=== PATIENT | female | born 1960 | race Caucasian/White ===

== ENCOUNTER 2023-09-18 12:11 | Outpatient (AMB) | payer BC, SELFPAY ==
[2023-09-18 12:34] VITALS: BP 110/72; PULSE 70; O2SAT 96; BMI 17.4
--- NOTE | 2023-09-18 12:34 | MHC.PC.OV ---
Vital Signs 09/18/23 12:34 Height 5 ft 5 in Weight 104 lb 8 oz BMI 17.4 BP 110/72 Blood Pressure Location Lt brachial Position Sitting Pulse 70 Pulse Source Pulse Oximeter Pulse Oximetry (%) 96 Oxygen Delivery Method Room Air Intake Visit Reasons: 6mth f/u Workforce Services Representative Required: No Accompanied by: Self / Same As Patient Allergies clonidine Allergy (Unknown, Verified 03/21/24 12:59) Unknown metronidazole [From Flagyl] Allergy (Unknown, Verified 03/21/24 12:59) Unknown oxazepam [From Serax] Allergy (Unknown, Verified 03/21/24 12:59) Unknown vancomycin Allergy (Unknown, Verified 03/21/24 12:59) Unknown Medication List - Last Reconciled 09/18/23 by Primo Sanchez MD atovaquone 750 mg PO BID azithromycin 250 mg PO DAILY clobetasol 0.05% 1 appl topical BID 2 weeks clobetasol 0.05% 1 appl topical BID PRN cyanocobalamin (vitamin B-12) 1,000 mcg IM QWEEK diazepam (Valium) 2 mg PO DAILY PRN 30 days duloxetine 30 mg PO BID esomeprazole magnesium 40 mg PO DAILY estradiol-norethindrone acet 1-0.5 mg (Mimvey) 1 tab PO DAILY fentanyl 50 mcg/hr 1 patch transdermal Q48H 30 days fentanyl 50 mcg/hr 1 patch topical Q48H 20 days NS fentanyl 50 mcg/hr 1 patch transdermal Q48H 10 days NS ferrous sulfate (Feosol) 325 mg PO DAILY hydrocodone-acetaminophen 10-325 mg 1 tab PO Q6H PRN 28 days ibuprofen 800 mg PO TID PRN levothyroxine 88 mcg PO DAILY lidocaine 5% 1 patch topical DAILY 30 days liothyronine 5 mcg PO DAILY methylphenidate HCl 5 mg PO BID 28 days oxycodone-acetaminophen 10-325 mg 1 tab PO Q6H 28 days prochlorperazine maleate 10 mg PO TID PRN valacyclovir 500 mg PO BID Tobacco use date assessed: 09/18/23 Fall risk assessment: No Falls in past year Last assessed Fall Risk: 09/18/23 Dental Screening Dental Screen Date: 09/18/23 Did you have a dental visit in the last 12 months?: No Did you have a dental problem in the last 6 months where you did not have access to dental care?: No Was dental information given to patient?: No HPI 6mth f/u HPI Details Patient comes in today for her follow up visit States that she was diagnosed recently by her alternative medicine doctor in [place] with Lyme disease, then with Babesia - states that she herself is not entirely clear as to what she has but she is currently taking some Abx to help clear up these infection(s) Relates again increased pain over her lower back lately She denies any fever, increased headaches or dizziness lately Denies any chest pains, no SOB No nausea/vomiting, no abdominal pain No change in bowel habits noted Needs her 2 thyroid meds Rx and Hydrocodone Rx refilled today She had her follow up labs done back in May 2023 - to discuss her results [facility] Medical History Dermatitis Osteopenia Pernicious anemia Impaired fasting glucose Acquired hypothyroidism Pure hypercholesterolemia Renal insufficiency GERD without esophagitis Failed back syndrome of lumbar spine Chronic fatigue syndrome Lumbar degenerative disc disease Surgical History Hx of colonoscopy (~08/21/17) History of endoscopy History of surgery Family History Father Chronic GERD Mother Hypertension Hypothyroid Social History Housing: House Alcohol intake: current Alcohol intake frequency: holidays/special occasions only Patient Tobacco Use Status: Former Tobacco user Tobacco use type: Cigarette e-Cigarette/Vaping Use: Never Used Second Hand Smoke Exposure: No service: No Current occupational status: disabled Cognitive needs: No Hearing needs: No Vision needs: No Questionnaire PHQ-9 Over the last 2 weeks, how often have you been bothered by any of the following problems? 1. Little interest or pleasure in doing things: not at all 2. Feeling down, depressed, or hopeless: not at all 3. Trouble falling or staying asleep, or sleeping too much: not at all 4. Feeling tired or having little energy: not at all 5. Poor appetite or overeating: not at all 6. Feeling bad about yourself - or that you are a failure or have let yourself or your family down: not at all 7. Trouble concentrating on things, such as reading the newspaper or watching television: not at all 8. Moving or speaking so slowly that other people could have noticed. Or the opposite - being so fidgety or restless that you have been moving around a lot more than usual: not at all 9. Thoughts that you would be better off or of hurting yourself in some way: not at all Total score: 0 Depression Screening Interpretation: Negative (is on Rx) Depression Screening Done: Yes [id number] - PHQ-9 Billing: Yes Source: Developed by Drs. Juan Antonio Woods, Radha Tenorio, Arpit Mccauley and colleagues, with an educational michelle from [employer]. Thrive Questionnaire Date Thrive assessed: 09/18/23 I am a: Patient What is your living situation today?: I have a steady place to live Within the past 12 months, did the food you bought not last and you didn't have the money to get more?: Never true Within the past 12 months, did you worry whether your food would run out before you got money to buy more?: Never true Do you have trouble paying for medicines?: No Do you have trouble getting transportation to medical appointments?: No Do you have trouble paying your heating and electricity bill?: No Do you have trouble taking care of your child, family member or friend?: No Do you have trouble with day-to-day activities such as bathing, preparing meals, shopping, managing finances, etc.?: No Are you currently unemployed and looking for a job?: No Are you interested in more education?: No Please select the resources that you would like help with: None Currently or been in a relationship where the following occur: no concerns reported AUDIT C Alcohol Use Questionnaire (AUDIT-C) 1. How often do you have a drink containing alcohol?: Monthly or less 2. How many drinks containing alcohol do you have on a typical day when you are drinking?: 1 or 2 3. How often do you have six or more drinks on one occasion?: Never Total Score: 1 Score Reviewed/Action Taken: Yes KRISTEL-7 AMB Questionnaire KRISTEL-7 Date KRISTEL - 7 assessed: 09/18/23 Feeling nervous, anxious, or on edge: 0 = Not at all Not being able to stop or control worryin = Not at all Worrying too much about different things: 0 = Not at all Trouble relaxin = Not at all Being so restless that it is hard to sit still: 0 = Not at all Becoming easily annoyed or irritable: 0 = Not at all Feeling afraid as if something awful might happen: 0 = Not at all Total KRISTEL-7 score (0-4 normal; 5-9 mild; 10-14 moderate; 15-21 severe): 0 Source: Developed by Drs. Juan Antonio Woods, Radha Tenorio, Arpit Mccauley and colleagues, with an educational michelle from [employer]. Review of Systems Const Denies chills, Reports fatigue (chronic), Denies fever(s) and Denies headache(s) ENT Denies dysphagia, Denies dizziness, Denies otalgia, Denies headache(s), Denies neck pain, Denies odynophagia and Denies sore throat Card Denies chest pain, Denies palpitations and Denies dyspnea Resp Denies chest congestion, Reports cough (on and off, coughs up whitish phlegm at times) and Denies dyspnea GI Denies abdominal pain, Denies constipation, Denies dysphagia, Denies heartburn, Denies diarrhea, Denies nausea, Denies odynophagia and Denies vomiting Denies difficulty voiding, Denies nocturia, Denies dysuria and Denies urinary urgency Musc Reports back pain (over the lower back - chronic but feels that this has been worse lately), Reports myalgias (diffuse - chronic but increased lately) and Denies neck pain Neuro Denies dizziness and Denies headache(s) Endo Reports fatigue (chronic) and Denies palpitations Physical exam (Primary Care) Vital Signs: Last Vital Signs Pulse 70 09/18/23 12:34 BP 110/72 09/18/23 12:34 Pulse Ox 96 09/18/23 12:34 Oxygen Delivery Method Room Air 09/18/23 12:34 BMI result Body Mass Index 17.4 Tobacco/Smoking Status: Tobacco use Status Tobacco use date assessed 09/18/23 09/18/23 12:43 Patient Tobacco Use Status Former Tobacco user 09/18/23 12:43 Tobacco use type Cigarette 09/18/23 12:43 e-Cigarette/Vaping Use Never Used 09/18/23 12:43 PHQ-9: PHQ-9 Score PHQ-9: Total score 0 09/18/23 12:57 Depression Screening Interpretation: Negative (is on Rx) Thrive Assessment: Date of Thrive Assessment Date Thrive assessed 09/18/23 12 12:43 Currently or been in a relationship where the following occur: no concerns reported Assessment and Plan Assessment & Plan (1) Failed back syndrome of lumbar spine: Code(s): M96.1 - Postlaminectomy syndrome, not elsewhere classified Plan: S/P lumbar spine surgery x 2 in the past without any significant improvement/relief Reinforced activity and weight-lifting restrictions Continue Vicodin 10-325 mg q 6 hours PRN ? Fentanyl 50 mcg patch every 48 hrs ? Duloxetine 30 mg BID and ? Ibuprofen 800 mg TID PRN (2) Chronic fatigue syndrome: Code(s): R53.82 - Chronic fatigue, unspecified Plan: Continue Methylphenidate 5 mg BID Patient [facility] [place] [facility] She was previously started on some Thymosin peptide injections (Thymosin Alpha 1/2 cc BIW), which she states were causing her more pain and they were eventually discontinued She was then advised of newer recommendations regarding Tx with Methylene blue but patient was skeptical about this and apparently did not pursue this States that her symptoms have gotten worse over the past few weeks, which she now realizes may be due to Lyme disease, which was diagnosed recently and is currently being treated (3) Lyme disease: Code(s): A69.20 - Lyme disease, unspecified Plan: Recently diagnosed - states that she is currently being treated for this but is not sure which Abx she is on at this time Recalls that she could not tolerate oral Doxycycline recently (4) Acquired hypothyroidism: Code(s): E03.9 - Hypothyroidism, unspecified Plan: Her TFTs were normal on her labs done back in May 2023 Continue Levothyroxine 88 mcg daily (5) Pure hypercholesterolemia: Code(s): E78.00 - Pure hypercholesterolemia, unspecified Plan: Results of her labs done back in May 2023 reviewed and discussed with patient - she is advised that her total cholesterol (210 mg/dl) and LDL cholesterol (135 mg/dl) were both still slightly elevated above recommended on her labs back in May 2023 Reinforced low cholesterol diet Patient still does not wish to start taking cholesterol Rx at this time (6) Renal insufficiency: Code(s): N28.9 - Disorder of kidney and ureter, unspecified Plan: Her previous labs showed findings consistent with stage 2 CKD - will need to continue monitoring her GFR and serum creatinine regularly Her serum creatinine and GFR appear stable on her recent labs Will consider referral to Nephrology for further evaluation and management if her renal function declines any further (7) Impaired fasting glucose: Code(s): R73.01 - Impaired fasting glucose Plan: Reinforced low-calorie diet /exercise as tolerated Her HgbA1c was normal at 4.5% on her labs back in May 2023; FBS was normal at 95 mg/dl (8) GERD without esophagitis: Code(s): K21.9 - Gastro-esophageal reflux disease without esophagitis Plan: Dietary restrictions reinforced Continue Esomeprazole 40 mg QD (9) Pernicious anemia: Code(s): D51.0 - Vitamin B12 deficiency anemia due to intrinsic factor deficiency Plan: Continue Vitamin B12 injection once a week Her CBC and Vitamin B12 were both normal on her labs in May 2023 (10) Dermatitis: Code(s): L30.9 - Dermatitis, unspecified Plan: Continue Clobetasol 0.05% BID PRN (11) Osteopenia: Code(s): M85.80 - Other specified disorders of bone density and structure, unspecified site Qualifiers: Osteopenia location: unspecified Qualified Code(s): M85.80 - Other specified disorders of bone density and structure, unspecified site Plan: Repeat BMD originally scheduled back in November 2019 was canceled due to the COVID-19 pandemic and patient has not been able to get her BMD rescheduled since Plan To return as scheduled in March 2024 for her annual physical examination Medications: Changed From levothyroxine 88 mcg PO DAILY 90 tabs 0RF To levothyroxine 88 mcg PO DAILY 90 tabs 1RF 90 days From liothyronine 5 mcg PO DAILY 90 tabs 0RF To liothyronine 5 mcg PO DAILY 90 tabs 1RF 90 days Coding Level of Care Code Est Pt Level 4 (40768) Diagnoses Failed back syndrome of lumbar spine M96.1 Chronic fatigue syndrome R53.82 Lyme disease A69.20 Acquired hypothyroidism E03.9 Pure hypercholesterolemia E78.00 Renal insufficiency N28.9 Impaired fasting glucose R73.01 GERD without esophagitis K21.9 Pernicious anemia D51.0 Dermatitis L30.9 Osteopenia, unspecified location M85.80 Osteopenia location: unspecified
== END 2023-09-18 13:09 | disposition home or self-care (01) ==
PROVIDERS: PCP Internal Medicine; Visit Provider Internal Medicine
DX: M96.1 Postlaminectomy syndrome, not elsewhere classified (principal); R53.82 Chronic fatigue, unspecified; A69.20 Lyme disease, unspecified; E03.9 Hypothyroidism, unspecified; E78.00 Pure hypercholesterolemia, unspecified; N28.9 Disorder of kidney and ureter, unspecified; R73.01 Impaired fasting glucose; K21.9 Gastro-esophageal reflux disease without esophagitis; D51.0 Vitamin B12 deficiency anemia due to intrinsic factor deficiency; L30.9 Dermatitis, unspecified; M85.80 Other specified disorders of bone density and structure, unspecified site
CPT/HCPCS: 99499

== ENCOUNTER 2023-11-06 12:48 | Outpatient (AMB) | payer BC, SELFPAY ==
[2023-11-06 12:56] VITALS: BP 128/70; PULSE 95; O2SAT 98; BMI 17.3
--- NOTE | 2023-11-06 12:56 | A.OFFPC_ITS ---
Vital Signs 11/06/23 12:56 Height 5 ft 5 in Weight 104 lb BMI 17.3 BP 128/70 Blood Pressure Location Lt brachial Position Sitting Pulse 95 Pulse Source Pulse Oximeter Pulse Oximetry (%) 98 Oxygen Delivery Method Room Air Intake Visit Reasons: requesting ortho referral Raking Machine Operator Required: No Heel Room Supervisor: Present Accompanied by: Self / Same As Patient Allergies clonidine Allergy (Unknown, Verified 11/06/23 13:54) Unknown metronidazole [From Flagyl] Allergy (Unknown, Verified 11/06/23 13:54) Unknown oxazepam [From Serax] Allergy (Unknown, Verified 11/06/23 13:54) Unknown vancomycin Allergy (Unknown, Verified 11/06/23 13:54) Unknown Medication List - Last Reconciled 11/06/23 by Clint Hwang MD atovaquone 750 mg PO BID azithromycin 250 mg PO DAILY clobetasol 0.05% 1 appl topical BID 2 weeks clobetasol 0.05% 1 appl topical BID PRN cyanocobalamin (vitamin B-12) 1,000 mcg IM QWEEK diazepam (Valium) 2 mg PO DAILY PRN 30 days duloxetine 30 mg PO BID esomeprazole magnesium 40 mg PO DAILY estradiol-norethindrone acet 1-0.5 mg (Mimvey) 1 tab PO DAILY fentanyl 50 mcg/hr 1 patch transdermal Q48H 30 days fentanyl 50 mcg/hr 1 patch topical Q48H 20 days NS fentanyl 50 mcg/hr 1 patch transdermal Q48H 10 days NS ferrous sulfate (Feosol) 325 mg PO DAILY hydrocodone-acetaminophen 10-325 mg 1 tab PO Q6H PRN 28 days ibuprofen 800 mg PO TID PRN levothyroxine 88 mcg PO DAILY 90 days lidocaine 5% 1 patch topical DAILY 30 days liothyronine 5 mcg PO DAILY 90 days methylphenidate HCl 5 mg PO BID 28 days oxycodone-acetaminophen 10-325 mg 1 tab PO Q6H 28 days prochlorperazine maleate 10 mg PO TID PRN valacyclovir 500 mg PO BID Tobacco use date assessed: 11/06/23 Fall risk assessment: No Falls in past year Last assessed Fall Risk: 11/06/23 Dental Screening Dental Screen Date: 11/06/23 Did you have a dental visit in the last 12 months?: Yes Did you have a dental problem in the last 6 months where you did not have access to dental care?: No Was dental information given to patient?: Patient has dentist HPI requesting ortho referral HPI Details 63-year-old female presents to the [facility] for a sick visit. I am covering her primary care provider. Patient reports for the past 4 weeks she is having lower back pain. She has had 2 back surgeries in the past. The last surgery was in 2008. Patient has been taking a combination of fentanyl, oxycodone for pain control. Current spasms in her back and her upper thigh have prep present for more than 4 weeks. She would like to see an orthopedic surgeon. Has not had any physical therapy or conventional muscle relaxants. Patient takes Valium for muscle relaxant. [facility] Medical History Acquired hypothyroidism Chronic fatigue syndrome Dermatitis Failed back syndrome of lumbar spine GERD without esophagitis Impaired fasting glucose Lumbar degenerative disc disease Osteopenia Pernicious anemia Pure hypercholesterolemia Renal insufficiency Surgical History Hx of colonoscopy (~08/21/17) History of endoscopy History of surgery Family History Father Chronic GERD Mother Hypertension Hypothyroid Social History Housing: House Alcohol intake: current Alcohol intake frequency: holidays/special occasions only Patient Tobacco Use Status: Former Tobacco user Tobacco use type: Cigarette e-Cigarette/Vaping Use: Never Used Second Hand Smoke Exposure: No service: No Current occupational status: disabled Cognitive needs: No Hearing needs: No Vision needs: No Questionnaire PHQ-9 Over the last 2 weeks, how often have you been bothered by any of the following problems? 1. Little interest or pleasure in doing things: not at all 2. Feeling down, depressed, or hopeless: not at all 3. Trouble falling or staying asleep, or sleeping too much: not at all 4. Feeling tired or having little energy: not at all 5. Poor appetite or overeating: not at all 6. Feeling bad about yourself - or that you are a failure or have let yourself or your family down: not at all 7. Trouble concentrating on things, such as reading the newspaper or watching television: not at all 8. Moving or speaking so slowly that other people could have noticed. Or the opposite - being so fidgety or restless that you have been moving around a lot more than usual: not at all 9. Thoughts that you would be better off or of hurting yourself in some way: not at all Total score: 0 Depression Screening Interpretation: Negative (on Rx) Depression Screening Done: Yes 48693 - PHQ-9 Billing: Yes Source: Developed by Drs. Juan Antonio Woods, Radha Tenorio, Arpit Mccauley and colleagues, with an educational michelle from [employer]. Thrive Questionnaire Date Thrive assessed: 11/06/23 I am a: Patient What is your living situation today?: I have a steady place to live Within the past 12 months, did the food you bought not last and you didn't have the money to get more?: Never true Within the past 12 months, did you worry whether your food would run out before you got money to buy more?: Never true Do you have trouble paying for medicines?: No Do you have trouble getting transportation to medical appointments?: No Do you have trouble paying your heating and electricity bill?: No Do you have trouble taking care of your child, family member or friend?: No Do you have trouble with day-to-day activities such as bathing, preparing meals, shopping, managing finances, etc.?: No Are you currently unemployed and looking for a job?: No Are you interested in more education?: No Please select the resources that you would like help with: None THRIVE Score: 0 AUDIT C Alcohol Use Questionnaire (AUDIT-C) 1. How often do you have a drink containing alcohol?: Monthly or less 2. How many drinks containing alcohol do you have on a typical day when you are drinking?: 1 or 2 3. How often do you have six or more drinks on one occasion?: Never Total Score: 1 Score Reviewed/Action Taken: Yes KRISTEL-7 AMB Questionnaire KRISTEL-7 Date KRISTEL - 7 assessed: 11/06/23 Feeling nervous, anxious, or on edge: 0 = Not at all Not being able to stop or control worryin = Not at all Worrying too much about different things: 0 = Not at all Trouble relaxin = Not at all Being so restless that it is hard to sit still: 0 = Not at all Becoming easily annoyed or irritable: 0 = Not at all Feeling afraid as if something awful might happen: 0 = Not at all Total KRISTEL-7 score (0-4 normal; 5-9 mild; 10-14 moderate; 15-21 severe): 0 Source: Developed by Drs. Juan Antonio Woods, Radha Tenorio, Arpit Mccauley and colleagues, with an educational michelle from [employer]. Physical exam (Primary Care) Vital Signs: Last Vital Signs Pulse 95 11/06/23 12:56 BP 128/70 11/06/23 12:56 Pulse Ox 98 11/06/23 12:56 Oxygen Delivery Method Room Air 11/06/23 12:56 BMI result Body Mass Index 17.3 Tobacco/Smoking Status: Tobacco use Status Tobacco use date assessed 11/06/23 11/06/23 12:57 Patient Tobacco Use Status Former Tobacco user 11/06/23 12:57 Tobacco use type Cigarette 11/06/23 12:57 e-Cigarette/Vaping Use Never Used 11/06/23 12:57 PHQ-9: PHQ-9 Score PHQ-9: Total score 0 11/06/23 13:47 Depression Screening Interpretation: Negative (on Rx) Thrive Assessment: Date of Thrive Assessment Date Thrive assessed 11/06/23 11/06/23 12:57 Back/Spine/Pelvis Other: Back: No spinal tenderness. No paraspinal spasm. Assessment and Plan Assessment & Plan (1) Lumbar degenerative disc disease: Code(s): M51.36 - Other intervertebral disc degeneration, lumbar region Plan: Owing to patient's long history of back pain and multiple surgeries, a referral to an orthopedic physician is being made. Coding Level of Care Code Est Pt Level 3 (62637) Diagnoses Lumbar degenerative disc disease M51.36
== END 2023-11-06 14:30 | disposition home or self-care (01) ==
PROVIDERS: PCP Internal Medicine; Visit Provider Internal Medicine
DX: M51.36 Other intervertebral disc degeneration, lumbar region (principal)
CPT/HCPCS: 99213

== ENCOUNTER 2024-03-21 12:11 | Outpatient (AMB) | payer BC, SELFPAY ==
--- NOTE | 2024-03-21 12:36 | A.OFFPC_ITS ---
Vital Signs 03/21/24 12:37 Height 5 ft 5 in Weight 105 lb 2 oz BMI 17.5 BP 130/64 Blood Pressure Location Lt brachial Position Sitting Pulse 67 Pulse Source Pulse Oximeter Pulse Oximetry (%) 98 Oxygen Delivery Method Room Air Intake Visit Reasons: Annual Exam Intake Note: Patient is here today for a physical. 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 Required: No Accompanied by: Self / Same As Patient Allergies clonidine Allergy (Unknown, Verified 03/21/24 12:59) Unknown metronidazole [From Flagyl] Allergy (Unknown, Verified 03/21/24 12:59) Unknown oxazepam [From Serax] Allergy (Unknown, Verified 03/21/24 12:59) Unknown vancomycin Allergy (Unknown, Verified 03/21/24 12:59) Unknown Medication List - Last Reconciled 03/21/24 by Primo Sanchez MD atovaquone 750 mg PO BID clobetasol 0.05% 1 appl topical BID PRN cyanocobalamin (vitamin B-12) 1,000 mcg IM QWEEK diazepam (Valium) 2 mg PO DAILY PRN 30 days duloxetine 30 mg PO BID esomeprazole magnesium 40 mg PO DAILY estradiol-norethindrone acet 1-0.5 mg (Mimvey) 1 tab PO DAILY fentanyl 50 mcg/hr 1 patch transdermal Q48H 30 days fentanyl 50 mcg/hr 1 patch transdermal Q48H 10 days NS ferrous sulfate (Feosol) 325 mg PO DAILY hydrocodone-acetaminophen 10-325 mg 1 tab PO Q6H PRN 28 days ibuprofen 800 mg PO TID PRN levothyroxine 88 mcg PO DAILY 90 days lidocaine 5% 1 patch topical DAILY 30 days liothyronine 5 mcg PO DAILY 90 days methocarbamol 750 mg PO TID PRN methylphenidate HCl 5 mg PO BID 28 days oxycodone-acetaminophen 10-325 mg 1 tab PO Q6H 28 days prochlorperazine maleate 10 mg PO TID PRN valacyclovir 500 mg PO BID Tobacco use date assessed: 11/06/23 Fall risk assessment: No Falls in past year Last assessed Fall Risk: 03/21/24 Dental Screening Dental Screen Date: 11/06/23 HPI Annual Exam HPI Details Patient comes in today for her annual physical examination States that she feels okay She denies any headaches or dizziness Denies any chest pains, no SOB No nausea/vomiting, no abdominal pain No change in bowel habits noted She denies any acute urinary symptoms States that her previous increase in her low back pain have improved - was diagnosed then with Lyme disease and states that her symptoms subsided when she completed her Lyme disease Tx States that her chronic low back pain and myalgia are again adequately controlled on her usual/previous pain med regimen Relates that she has a follow up appt coming up with [facility] in a couple of weeks to get her Lyme disease titer rechecked She had her screening colonoscopy last done on 08/21/2017 - colonoscopy came out normal and she was recommended to get repeat colonoscopy done in 10 years (2026) She last had her annual mammogram done at [facility] in September 2023 - mammogram was negative Her annual gynecology exam and pap smear (also done at [facility]) was done on 09/10/[address] Alivia Soliz [facility] Medical History Dermatitis Osteopenia Pernicious anemia Impaired fasting glucose Acquired hypothyroidism Pure hypercholesterolemia Renal insufficiency GERD without esophagitis Failed back syndrome of lumbar spine Chronic fatigue syndrome Lumbar degenerative disc disease Surgical History Hx of colonoscopy (~08/21/17) History of endoscopy History of surgery Family History Father Chronic GERD Mother Hypertension Hypothyroid Social History Housing: House Alcohol intake: current Alcohol intake frequency: holidays/special occasions only Patient Tobacco Use Status: Former Tobacco user Tobacco use type: Cigarette e-Cigarette/Vaping Use: Never Used Second Hand Smoke Exposure: No service: No Current occupational status: disabled Cognitive needs: No Hearing needs: No Vision needs: No Questionnaire Thrive Questionnaire Date Thrive assessed: 11/06/23 KRISTEL-7 AMB Questionnaire KRISTEL-7 Date KRISTEL - 7 assessed: 11/06/23 Source: Developed by Drs. Juan Antonio Woods, Radha Tenorio, Arpit Mccauley and colleagues, with an educational michelle from [employer]. Review of Systems Const Denies chills, Reports fatigue (chronic), Denies fever(s) and Denies headache(s) Eyes Denies blurry vision, Denies change in vision, Denies irritation and Denies itchy eyes ENT Denies dysphagia, Denies dizziness, Denies otalgia, Denies headache(s), Denies odynophagia, Denies sinus pain and Denies sore throat Card Denies chest pain, Denies rapid heart rate, Denies irregular heart rhythm, Denies palpitations and Denies dyspnea Resp Denies cough, Denies dyspnea and Denies wheezing GI Denies abdominal pain, Denies constipation, Denies dysphagia, Denies heartburn, Denies diarrhea, Denies nausea, Denies odynophagia and Denies vomiting Denies difficulty voiding, Denies nocturia, Denies dysuria and Denies urinary urgency Musc Reports back pain (over the lower back - chronic) and Reports myalgias (diffuse - chronic) Skin/Breast Denies breast pain, Denies breast mass, Denies change in pigmentation, Denies lesions, Denies rash and Denies unusual bruising Neuro Denies dizziness and Denies headache(s) Psych Denies anxiety and Denies depression Endo Reports fatigue (chronic) and Denies palpitations Reid/Lymph Denies easy bruising Aller/Immun Denies itchy eyes and Denies wheezing Physical exam (Primary Care) Vital Signs: Last Vital Signs Pulse 67 03/21/24 12:37 BP 130/64 03/21/24 12:37 Pulse Ox 98 03/21/24 12:37 Oxygen Delivery Method Room Air 03/21/24 12:37 BMI result Body Mass Index 17.5 Tobacco/Smoking Status: Tobacco use Status Tobacco use date assessed 11/06/23 03/21/24 12:37 Patient Tobacco Use Status Former Tobacco user 03/21/24 12:37 Tobacco use type Cigarette 03/21/24 12:37 e-Cigarette/Vaping Use Never Used 03/21/24 12:37 Thrive Assessment: Date of Thrive Assessment Date Thrive assessed 11/06/23 03/21/24 12:37 Const General: no acute distress and alert Orientation/consciousness: patient oriented x3 HENMT Head: Yes normocephalic and Yes atraumatic Ears: TM's normal bilaterally and EAC's normal General nose exam: No nasal discharge present Face and sinus: Yes normal facial exam and Yes sinuses nontender Teeth and gingiva: dentition normal Throat: Yes posterior oropharynx normal and Yes tonsils normal (no TP congestion noted) Eyes Eyelids: Yes eyelids normal Conjunctivae: conjunctivae normal Pupils: Equal, round and reactive pupils present EOM: EOMs intact bilaterally Neck Neck: Yes no lymphadenopathy and Yes supple Thyroid: Thyroid normal Resp Auscultation: clear to auscultation bilaterally, no rales and no wheezes Cardio Rate: regular rate Rhythm: regular rhythm Heart sounds: no murmurs GI Palpation (GI): Soft to palpation, nontender and No hepatosplenomegaly present Auscultation: normal bowel sounds General: Yes no CVA tenderness Back/Spine/Pelvis Back: no CVA tenderness Thoracic/Lumbar Spine: lumbar spinal tenderness Skin Lesions: no lesions Rashes: no rashes Neuro General: patient oriented x3, moves all extremities, no focal motor deficits and CN's II-XI intact bilaterally Cranial nerves: Yes Equal, round and reactive pupils present Cognition (Neuro): normal cognition Gait exam (Neuro): Normal gait present Extrem General: Yes no clubbing, cyanosis or edema Assessment and Plan Assessment & Plan (1) Annual physical exam: Code(s): Z00.00 - Encounter for general adult medical examination without abnormal findings Plan: Check labs She is currently up-to-date with her cancer screenings - see HPI She is not due for her repeat colonoscopy until 2026 (2) Failed back syndrome of lumbar spine: Code(s): M96.1 - Postlaminectomy syndrome, not elsewhere classified Plan: S/P lumbar spine surgery x 2 in the past without any significant improvement/relief Reinforced activity and weight-lifting restrictions Continue Vicodin 10-325 mg q 6 hours PRN ? Fentanyl 50 mcg patch every 48 hrs ? Duloxetine 30 mg BID and ? Ibuprofen 800 mg TID PRN (3) Chronic fatigue syndrome: Code(s): R53.82 - Chronic fatigue, unspecified Plan: Continue Methylphenidate 5 mg BID Patient [facility] [place] [facility] She was previously started on some Thymosin peptide injections (Thymosin Alpha 1/2 cc BIW), which she states were causing her more pain and they were eventually discontinued She was then advised of newer recommendations regarding Tx with Methylene blue but patient was skeptical about this and apparently did not pursue this (4) Acquired hypothyroidism: Code(s): E03.9 - Hypothyroidism, unspecified Plan: Continue Levothyroxine 88 mcg daily Will recheck her TFTs MANNY for follow up (5) Pure hypercholesterolemia: Code(s): E78.00 - Pure hypercholesterolemia, unspecified Plan: Reinforced low cholesterol diet Will also recheck her fasting lipids for follow up (6) Renal insufficiency: Code(s): N28.9 - Disorder of kidney and ureter, unspecified Plan: Previous labs showed findings consistent with stage 2 CKD - will need to continue monitoring her GFR and serum creatinine regularly Will consider referral to Nephrology for further evaluation and management if her renal function declines any further (7) Impaired fasting glucose: Code(s): R73.01 - Impaired fasting glucose Plan: Reinforced low-calorie diet /exercise as tolerated Will recheck her FBS for follow up (8) GERD without esophagitis: Code(s): K21.9 - Gastro-esophageal reflux disease without esophagitis Plan: Dietary restrictions reinforced Continue Esomeprazole 40 mg QD (9) Pernicious anemia: Code(s): D51.0 - Vitamin B12 deficiency anemia due to intrinsic factor deficiency Plan: Continue Vitamin B12 injection once a week Will recheck Vitamin B12 level and CBC for follow-up (10) Dermatitis: Code(s): L30.9 - Dermatitis, unspecified Plan: Continue Clobetasol 0.05% BID PRN (11) Osteopenia: Code(s): M85.80 - Other specified disorders of bone density and structure, unspecified site Qualifiers: Osteopenia location: unspecified Qualified Code(s): M85.80 - Other specified disorders of bone density and structure, unspecified site Plan: Repeat BMD originally scheduled back in November 2019 was canceled due to the COVID-19 pandemic and patient has not been able to get her BMD rescheduled since As she is going to transition to Medicare in about a month, she would like to have this put on hold for now and get this ordered once she is completely switched over to Medicare Plan Follow up in 6 months Orders: Orders Comprehensive [place]. Panel Fast Today E78.00 - Pure hypercholesterolemia, unspecified, Z00.00 - Encounter for general adult medical examination without abnormal findings Lipid Panel Today E78.00 - Pure hypercholesterolemia, unspecified, Z00.00 - Encounter for general adult medical examination without abnormal findings Complete Blood Count Auto Diff Today D64.9 - Anemia, unspecified, Z00.00 - Encounter for general adult medical examination without abnormal findings UA CC w/rflx Micro + Cult Today R30.0 - Dysuria, Z00.00 - Encounter for general adult medical examination without abnormal findings Vitamin D 25-OH Total Today E55.9 - Vitamin D deficiency, unspecified, Z00.00 - Encounter for general adult medical examination without abnormal findings Vitamin B12 and Folate Today E53.8 - Deficiency of other specified B group vitamins, Z00.00 - Encounter for general adult medical examination without abnormal findings Thyroid Stimulating Hormone Today E03.9 - Hypothyroidism, unspecified, Z00.00 - Encounter for general adult medical examination without abnormal findings Free T4 (Free Thyroxine) Today E03.9 - Hypothyroidism, unspecified, Z00.00 - Encounter for general adult medical examination without abnormal findings Coding Level of Care Code Est Pt Prev Care 40-64y(15226) Diagnoses Annual physical exam Z00.00 Failed back syndrome of lumbar spine M96.1 Chronic fatigue syndrome R53.82 Acquired hypothyroidism E03.9 Pure hypercholesterolemia E78.00 Renal insufficiency N28.9 Impaired fasting glucose R73.01 GERD without esophagitis K21.9 Pernicious anemia D51.0 Dermatitis L30.9 Osteopenia, unspecified location M85.80 Osteopenia location: unspecified
[2024-03-21 12:37] VITALS: BP 130/64; PULSE 67; O2SAT 98; BMI 17.5
== END 2024-03-21 13:24 | disposition home or self-care (01) ==
PROVIDERS: PCP Internal Medicine; Visit Provider Internal Medicine
DX: Z00.00 Encounter for general adult medical examination without abnormal findings (principal); M96.1 Postlaminectomy syndrome, not elsewhere classified; R53.82 Chronic fatigue, unspecified; E03.9 Hypothyroidism, unspecified; E78.00 Pure hypercholesterolemia, unspecified; N28.9 Disorder of kidney and ureter, unspecified; R73.01 Impaired fasting glucose; K21.9 Gastro-esophageal reflux disease without esophagitis; D51.0 Vitamin B12 deficiency anemia due to intrinsic factor deficiency; L30.9 Dermatitis, unspecified; M85.80 Other specified disorders of bone density and structure, unspecified site
CPT/HCPCS: 99396

== ENCOUNTER 2024-09-24 12:02 | Outpatient (AMB) | payer MEDICARE, SELFPAY ==
[2024-09-24 12:36] VITALS: BP 156/82; PULSE 74; O2SAT 97; BMI 17.8
--- NOTE | 2024-09-24 12:36 | A.OFFPC_ITS ---
Vital Signs 09/24/24 12:36 09/24/24 13:37 Height 5 ft 5 in Weight 107 lb BMI 17.8 BP 156/82 H 142/78 H Blood Pressure Location Lt brachial Lt brachial Position Sitting Left Lateral Pulse 74 Pulse Source Pulse Oximeter Pulse Oximetry (%) 97 Oxygen Delivery Method Room Air Intake Visit Reasons: hyperlipidemia, hypothyroidism, renal insuff, IFG Pricing/Signage Team Member Required: No Accompanied by: Spouse Allergies clonidine Allergy (Unknown, Verified 09/24/24 12:57) Unknown metronidazole [From Flagyl] Allergy (Unknown, Verified 09/24/24 12:57) Unknown oxazepam [From Serax] Allergy (Unknown, Verified 09/24/24 12:57) Unknown vancomycin Allergy (Unknown, Verified 09/24/24 12:57) Unknown Medication List - Last Reconciled 09/24/24 by Primo Sanchez MD atovaquone 750 mg PO BID [BD Luer -Rod syringes. 3cc 25 G x5/8 in As directed] [BD SYRINGES 31 g As directed] clobetasol 0.05% 1 appl topical BID PRN cyanocobalamin (vitamin B-12) 1,000 mcg IM QWEEK diazepam (Valium) 2 mg PO DAILY PRN 30 days duloxetine 30 mg PO BID esomeprazole magnesium 40 mg PO DAILY estradiol-norethindrone acet 1-0.5 mg (Mimvey) 1 tab PO DAILY fentanyl 50 mcg/hr 1 patch topical Q48H 30 days NS ferrous sulfate (Feosol) 325 mg PO DAILY hydrocodone-acetaminophen 10-325 mg 1 tab PO Q6H PRN 28 days ibuprofen 800 mg PO TID PRN insulin syringe-needle U-100 ([facility] Syringes) As directed levothyroxine 88 mcg PO DAILY 90 days lidocaine 5% 1 patch topical DAILY 30 days liothyronine 5 mcg PO DAILY 90 days methocarbamol 750 mg PO TID PRN methylphenidate HCl 5 mg PO BID 28 days naloxone 4 mg/actuation (Narcan) 4 mg intranasal Q3M PRN oxycodone-acetaminophen 10-325 mg 1 tab PO Q6H 28 days prochlorperazine maleate 10 mg PO TID PRN valacyclovir 500 mg PO BID Tobacco use date assessed: 09/24/24 Fall risk assessment: No Falls in past year Last assessed Fall Risk: 09/24/24 Dental Screening Dental Screen Date: 09/24/24 Did you have a dental visit in the last 12 months?: No Did you have a dental problem in the last 6 months where you did not have access to dental care?: No Was dental information given to patient?: No (Pt has dentures) HPI hyperlipidemia, hypothyroidism, renal insuff, IFG HPI Details Patient comes in today for her follow-up visit States that she feels okay She continues to feel fatigued often, with diffuse aching and pain due to her fibromyalgia but states that these are mostly manageable and controlled with her current medications She is requesting to have her control pill changed back to the branded formulation of Mimvey she states that ever since she was switched to the generic equivalent a few months ago, she has noticed significant differences in the texture of her hair and skin as well as her overall body odor States that 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 from 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 and she is in the process of looking for a new provider and does not have anybody to prescribe her control pill at this time She will be due for repeat colonoscopy in 2026; has not had an annual mammogram done this year yet and needs one ordered She also has not had a bone density scan done yet even though it has been ordered multiple times over the past 8 to 9 years or so She denies any headaches or dizziness Denies any chest pains, no shortness of breath No nausea/vomiting, no abdominal pain No change in bowel habits noted She was also not able to get her previously ordered labs done yet - states that she will try to get them done MANNY together with her other labs that she is scheduled to do from [facility] [place] Patient has to get her labs done at [facility] supposedly due to insurance restrictions [facility] Medical History Dermatitis Osteopenia Pernicious anemia Impaired fasting glucose Acquired hypothyroidism Pure hypercholesterolemia Renal insufficiency GERD without esophagitis Failed back syndrome of lumbar spine Chronic fatigue syndrome Lumbar degenerative disc disease Surgical History Hx of colonoscopy (~08/21/17) History of endoscopy History of surgery Family History Father Chronic GERD Mother Hypertension Hypothyroid Social History Housing: House Alcohol intake: current Alcohol intake frequency: holidays/special occasions only Patient Tobacco Use Status: Former Tobacco user Tobacco use type: Cigarette e-Cigarette/Vaping Use: Never Used Second Hand Smoke Exposure: No service: No Current occupational status: disabled Cognitive needs: No Hearing needs: No Vision needs: No Questionnaire PHQ-9 Over the last 2 weeks, how often have you been bothered by any of the following problems? 1. Little interest or pleasure in doing things: not at all 2. Feeling down, depressed, or hopeless: not at all 3. Trouble falling or staying asleep, or sleeping too much: not at all 4. Feeling tired or having little energy: not at all 5. Poor appetite or overeating: not at all 6. Feeling bad about yourself - or that you are a failure or have let yourself or your family down: not at all 7. Trouble concentrating on things, such as reading the newspaper or watching television: not at all 8. Moving or speaking so slowly that other people could have noticed. Or the opposite - being so fidgety or restless that you have been moving around a lot more than usual: not at all 9. Thoughts that you would be better off or of hurting yourself in some way: not at all Total score: 0 Depression Screening Interpretation: Negative (on Rx) Depression Screening Done: Yes 97910 - PHQ-9 Billing: Yes Source: Developed by Drs. Juan Antonio Woods, Radha Tenorio, Arpit Mccauley and colleagues, with an educational michelle from [employer]. Thrive Questionnaire Date Thrive assessed: 09/24/24 I am a: Patient What is your living situation today?: I have a steady place to live Within the past 12 months, did the food you bought not last and you didn't have the money to get more?: Never true Within the past 12 months, did you worry whether your food would run out before you got money to buy more?: Never true Do you have trouble paying for medicines?: No Do you have trouble getting transportation to medical appointments?: No Do you have trouble paying your heating and electricity bill?: No Do you have trouble taking care of your child, family member or friend?: No Do you have trouble with day-to-day activities such as bathing, preparing meals, shopping, managing finances, etc.?: No Are you currently unemployed and looking for a job?: No Are you interested in more education?: No Please select the resources that you would like help with: None Currently or been in a relationship where the following occur: No concerns reported THRIVE Score: 0 AUDIT C Alcohol Use Questionnaire (AUDIT-C) 1. How often do you have a drink containing alcohol?: Monthly or less 2. How many drinks containing alcohol do you have on a typical day when you are drinking?: 1 or 2 3. How often do you have six or more drinks on one occasion?: Never Total Score: 1 Score Reviewed/Action Taken: Yes KRISTEL-7 AMB Questionnaire KRISTEL-7 Date KRISTEL - 7 assessed: 09/24/24 Feeling nervous, anxious, or on edge: 0 = Not at all Not being able to stop or control worryin = Not at all Worrying too much about different things: 0 = Not at all Trouble relaxin = Not at all Being so restless that it is hard to sit still: 0 = Not at all Becoming easily annoyed or irritable: 0 = Not at all Feeling afraid as if something awful might happen: 0 = Not at all Total KRISTEL-7 score (0-4 normal; 5-9 mild; 10-14 moderate; 15-21 severe): 0 Source: Developed by Drs. Juan Antonio Woods, Radha Tenorio, Arpit Mccauley and colleagues, with an educational michelle from [employer]. Review of Systems Const Denies chills, Reports fatigue (chronic), Denies fever(s) and Denies headache(s) ENT Denies dysphagia, Denies dizziness, Denies otalgia, Denies headache(s), Denies odynophagia and Denies sore throat Card Denies chest pain, Denies irregular heart rhythm, Denies palpitations and Denies dyspnea Resp Denies cough, Denies dyspnea and Denies wheezing GI Denies abdominal pain, Denies constipation, Denies dysphagia, Denies heartburn, Denies diarrhea, Denies nausea, Denies odynophagia and Denies vomiting Denies difficulty voiding, Denies nocturia and Denies dysuria Musc Reports back pain (over the lower back - chronic) and Reports myalgias (diffuse - chronic) Skin/Breast Denies rash Neuro Denies dizziness and Denies headache(s) Psych Denies anxiety and Denies depression Endo Reports fatigue (chronic) and Denies palpitations Reid/Lymph Denies easy bruising Aller/Immun Denies wheezing Physical exam (Primary Care) Vital Signs: Last Vital Signs Pulse 74 09/24/24 12:36 BP 142/78 H 09/24/24 13:37 Pulse Ox 97 09/24/24 12:36 Oxygen Delivery Method Room Air 09/24/24 12:36 BMI result Body Mass Index 17.8 Tobacco/Smoking Status: Tobacco use Status Tobacco use date assessed 09/24/24 09/24/24 12:39 Patient Tobacco Use Status Former Tobacco user 09/24/24 12:39 Tobacco use type Cigarette 09/24/24 12:39 e-Cigarette/Vaping Use Never Used 09/24/24 12:39 PHQ-9: PHQ-9 Score PHQ-9: Total score 0 09/24/24 13:40 Depression Screening Interpretation: Negative (on Rx) Thrive Assessment: Date of Thrive Assessment Date Thrive assessed 09/24/24 09/24/24 12:39 Currently or been in a relationship where the following occur: No concerns reported Const General: no acute distress and alert HENMT Ears: TM's normal bilaterally and EAC's normal Throat: Yes posterior oropharynx normal and Yes tonsils normal (no TP congestion noted) Neck Neck: Yes supple and No lymphadenopathy Thyroid: Thyroid normal Resp Auscultation: clear to auscultation bilaterally, no rales and no wheezes Cardio Rate: regular rate Rhythm: regular rhythm Heart sounds: no murmurs GI Palpation (GI): Soft to palpation and nontender Auscultation: normal bowel sounds General: Yes no CVA tenderness Back/Spine/Pelvis Back: no CVA tenderness Thoracic/Lumbar Spine: lumbar spinal tenderness Skin Rashes: no rashes Extrem General: Yes no clubbing, cyanosis or edema Coding Level of Care Code Est Pt Level 4 (28971) Diagnoses Failed back syndrome of lumbar spine M96.1 Chronic fatigue syndrome R53.82 Acquired hypothyroidism E03.9 Pure hypercholesterolemia E78.00 Impaired fasting glucose R73.01 Renal insufficiency N28.9 GERD without esophagitis K21.9 Pernicious anemia D51.0 Osteopenia, unspecified location M85.80 Osteopenia location: unspecified Dermatitis L30.9 Additional Codes PHQ-9 - 73479 - PHQ-9 Billing: Yes ([id number]) Assessment & Plan Assessment & Plan (1) Failed back syndrome of lumbar spine: Code(s): M96.1 - Postlaminectomy syndrome, not elsewhere classified Category: Medical Plan: S/P lumbar spine surgery x 2 in the past without any significant improvement/relief Reinforced activity and weight-lifting restrictions Continue Vicodin 10-325 mg q 6 hours PRN ? Fentanyl 50 mcg patch every 48 hrs ? Duloxetine 30 mg BID and ? Ibuprofen 800 mg TID PRN (2) Chronic fatigue syndrome: Code(s): R53.82 - Chronic fatigue, unspecified Category: Medical Plan: Continue Methylphenidate 5 mg BID Patient [facility] [place] [facility] She was previously started on some Thymosin peptide injections (Thymosin Alpha 1/2 cc BIW), which she states were causing her more pain and they were eventually discontinued She has also been advised of other recommendations, including Methylene blue but patient did not pursue this Patient recalls being tested for Lyme disease multiple times in the past and her tests always came out negative but she was eventually still diagnosed with Lyme disease after additional testing done by [facility] came out positive and she was then subsequently treated Will also go ahead and include tests for Ehrlichiosis to be done together with h er other routine labs for further evaluation (3) Acquired hypothyroidism: Code(s): E03.9 - Hypothyroidism, unspecified Category: Medical Plan: Continue Levothyroxine 88 mcg daily Will recheck her TFTs MANNY for follow up (4) Pure hypercholesterolemia: Code(s): E78.00 - Pure hypercholesterolemia, unspecified Category: Medical Plan: Her last follow-up labs done were at [email or web address] back in May of 2023; she has not been able to get her previously ordered follow-up labs done yet and these are updated and printed out for her to do MANNY Reinforced low-cholesterol diet (5) Impaired fasting glucose: Code(s): R73.01 - Impaired fasting glucose Category: Medical Plan: Reinforced low calorie/low carb diet; exercise as tolerated Will have her check her FBS and HgbA1c MANNY for follow up (6) Renal insufficiency: Code(s): N28.9 - Disorder of kidney and ureter, unspecified Category: Medical Plan: Her previous labs showed findings consistent with stage 2 CKD - will need to continue monitoring her GFR and serum creatinine regularly Will consider referral to Nephrology for further evaluation and management if her renal function declines any further (7) GERD without esophagitis: Code(s): K21.9 - Gastro-esophageal reflux disease without esophagitis Category: Medical Plan: Dietary restrictions reinforced Continue Esomeprazole 40 mg QD (8) Pernicious anemia: Code(s): D51.0 - Vitamin B12 deficiency anemia due to intrinsic factor deficiency Category: Medical Plan: Continue Vitamin B12 injection once a week Will recheck her Vitamin B12 level and CBC MANNY for follow-up (9) Osteopenia: Code(s): M85.80 - Other specified disorders of bone density and structure, unspecified site Category: Medical Qualifiers: Osteopenia location: unspecified Qualified Code(s): M85.80 - Other specified disorders of bone density and structure, unspecified site Plan: Her repeat BMD originally scheduled back in November 2019 was canceled due to the COVID-19 pandemic and patient has not been able to get her BMD rescheduled since despite it being ordered multiple times over the past few years Patient then asked to have this put on hold until she is completely switched over to Medicare - as she now has Medicare coverage, will go ahead and reorder her repeat BMD (10) Dermatitis: Code(s): L30.9 - Dermatitis, unspecified Category: Medical Plan: Continue Clobetasol 0.05% BID PRN Plan To return in 6 months for her next annual physical examination Orders: Orders XR DEXA axial skeleton 09/24/24 Z78.0 - Asymptomatic menopausal state Ehrlichia Anaplasma Ab Panel 09/24/24 R53.82 - Chronic fatigue, unspecified MM tomosynthesis screening BI 09/24/24 Z12.31 - Encounter for screening mammogram for malignant neoplasm of breast Medications: Changed From estradiol-norethindrone acet 1-0.5 mg (Mimvey) 1 tab PO DAILY 84 tabs 2RF To Mimvey 1-0.5 mg (estradiol-norethindrone acet) 1 tab PO DAILY 28 tabs 5RF NS
[2024-09-24 13:37] VITALS: BP 142/78
== END 2024-09-24 13:49 | disposition home or self-care (01) ==
PROVIDERS: PCP Internal Medicine; Visit Provider Internal Medicine
DX: M96.1 Postlaminectomy syndrome, not elsewhere classified (principal); R53.82 Chronic fatigue, unspecified; E03.9 Hypothyroidism, unspecified; E78.00 Pure hypercholesterolemia, unspecified; R73.01 Impaired fasting glucose; N28.9 Disorder of kidney and ureter, unspecified; K21.9 Gastro-esophageal reflux disease without esophagitis; D51.0 Vitamin B12 deficiency anemia due to intrinsic factor deficiency; M85.80 Other specified disorders of bone density and structure, unspecified site; L30.9 Dermatitis, unspecified

== ENCOUNTER → 2024-09-24 12:02 | Outpatient (BNVA) | payer OTHER, MEDICARE, SELFPAY | PROVIDERS: PCP Internal Medicine; Visit Provider Internal Medicine | DX: M96.1 Postlaminectomy syndrome, not elsewhere classified (principal); R53.82 Chronic fatigue, unspecified; E03.9 Hypothyroidism, unspecified; E78.00 Pure hypercholesterolemia, unspecified; R73.01 Impaired fasting glucose; N28.9 Disorder of kidney and ureter, unspecified; K21.9 Gastro-esophageal reflux disease without esophagitis; D51.0 Vitamin B12 deficiency anemia due to intrinsic factor deficiency; M85.80 Other specified disorders of bone density and structure, unspecified site; L30.9 Dermatitis, unspecified; Z79.891 Long term (current) use of opiate analgesic; Z79.899 Other long term (current) drug therapy | CPT/HCPCS: 96127 ==

== ENCOUNTER 2025-05-26 09:39 | Outpatient (AMB) | payer MEDICARE, SELFPAY ==
--- NOTE | 2025-05-26 09:43 | A.OFFPC_ITS ---
Vital Signs 3 05/26/25 09:45 Height 5 ft 5 in Weight 108 lb BMI 18.0 BP 146/56 H Blood Pressure Location Lt brachial Position Sitting Pulse 75 Pulse Source Pulse Oximeter Pulse Oximetry (%) 98 Oxygen Delivery Method Room Air Intake Visit Reasons: Left breast lump Copper Miner Required: No Accompanied by: Self / Same As Patient Allergies clonidine Allergy (Unknown, Verified 05/26/25 09:50) Unknown metronidazole (From Flagyl) Allergy (Unknown, Verified 05/26/25 09:50) Unknown oxazepam (From Serax) Allergy (Unknown, Verified 05/26/25 09:50) Unknown vancomycin Allergy (Unknown, Verified 05/26/25 09:50) Unknown Medication List - Last Reconciled 05/26/25 by Bridgette Cordero PA-C atovaquone 750 mg PO BID azithromycin 250 mg PO DAILY 30 days [BD Luer -Rod syringes. 3cc 25 G x5/8 in As directed] [BD SYRINGES 31 g As directed] clobetasol 0.05% 1 appl topical BID PRN cyanocobalamin (vitamin B-12) 1,000 mcg IM QWEEK diazepam (Valium) 2 mg PO DAILY PRN 30 days esomeprazole magnesium 40 mg PO DAILY estradiol-norethindrone acet 1-0.5 mg (Activella) 1 tab PO DAILY fentanyl 50 mcg/hr 1 patch topical Q48H 30 days NS ferrous sulfate (Feosol) 325 mg PO DAILY hydrocodone-acetaminophen 10-325 mg 1 tab PO Q6H PRN 28 days insulin syringe-needle U-100 (Advocate Syringes) As directed levothyroxine 88 mcg PO DAILY 90 days lidocaine 5% 1 patch topical DAILY 30 days liothyronine 5 mcg PO DAILY 90 days methocarbamol 750 mg PO TID PRN methylphenidate HCl 5 mg PO BID 28 days naloxone 4 mg/actuation (Narcan) 4 mg intranasal Q3M PRN oxycodone-acetaminophen 10-325 mg 1 tab PO Q6H 28 days Held on 10/26/23. Instructions: Doctor's Order prochlorperazine maleate 10 mg PO TID PRN valacyclovir 500 mg PO BID Tobacco use date assessed: 05/26/25 Fall risk assessment: No Falls in past year Last assessed Fall Risk: 05/26/25 Dental Screening Dental Screen Date: 05/26/25 Did you have a dental visit in the last 12 months?: No Did you have a dental problem in the last 6 months where you did not have access to dental care?: No Was dental information given to patient?: No HPI Left breast lump 2 HPI0 Details 65-year-old female with past medical his tory chronic fatigue, failed back syndrome, GERD, renal insufficiency, hypercholesterolemia, hypothyroidism, impaired glucose tolerance last seen 10/[address] Hwang coming in for acute problem. Presenting with concerns regarding a mass in the left breast that began about 3 months ago. She has a history of a cyst in the left breast that was previously drained and resolved until September of the previous year. The mass has since returned, moved, and spread, with associated dimpling and retraction of the skin. The patient has not had a mammogram in two years due to scheduling issues and difficulty obtaining an appointment. She reports nipple pruritus, particularly when sweating, but denies pain, discharge, or rashes. The patient has a history of Lyme disease, which was treated after it affected her spine, but she reports no current symptoms related to Lyme disease. [facility] Medical History Dermatitis Osteopenia Pernicious anemia Impaired fasting glucose Acquired hypothyroidism Pure hypercholesterolemia Renal insufficiency GERD without esophagitis Failed back syndrome of lumbar spine Chronic fatigue syndrome Lumbar degenerative disc disease Surgical History Hx of colonoscopy (~08/21/17) History of endoscopy History of surgery Family History Father Chronic GERD Mother Hypertension Hypothyroid Social History Housing: House Alcohol intake: current Alcohol intake frequency: holidays/special occasions only Patient Tobacco Use Status: Former Tobacco user Tobacco use type: Cigarette e-Cigarette/Vaping Use: Never Used Second Hand Smoke Exposure: No service: No Current occupational status: disabled Cognitive needs: No Hearing needs: No Vision needs: No Questionnaire PHQ-9 Over the last 2 weeks, how often have you been bothered by any of the following problems? 1. Little interest or pleasure in doing things: not at all 2. Feeling down, depressed, or hopeless: not at all 3. Trouble falling or staying asleep, or sleeping too much: not at all 4. Feeling tired or having little energy: several days 5. Poor appetite or overeating: not at all 6. Feeling bad about yourself - or that you are a failure or have let yourself or your family down: not at all 7. Trouble concentrating on things, such as reading the newspaper or watching television: not at all 8. Moving or speaking so slowly that other people could have noticed. Or the opposite - being so fidgety or restless that you have been moving around a lot more than usual: not at all 9. Thoughts that you would be better off or of hurting yourself in some way: not at all Total score: 1 28292 - PHQ-9 Billing: Yes Source: Developed by Drs. Juan Antonio Woods, Radha Tenorio, Arpit Mccauley and colleagues, with an educational michelle from [employer]. Thrive Questionnaire Date Thrive assessed: 05/26/25 I am a: Patient What is your living situation today?: I have a steady place to live Within the past 12 months, did the food you bought not last and you didn't have the money to get more?: Never true Within the past 12 months, did you worry whether your food would run out before you got money to buy more?: Never true Do you have trouble paying for medicines?: No Do you have trouble getting transportation to medical appointments?: No Do you have trouble paying your heating and electricity bill?: No Do you have trouble taking care of your child, family member or friend?: No Do you have trouble with day-to-day activities such as bathing, preparing meals, shopping, managing finances, etc.?: No Are you currently unemployed and looking for a job?: No Are you interested in more education?: No Please select the resources that you would like help with: None Currently or been in a relationship where the following occur: No concerns reported THRIVE Score: 0 KRISTEL-7 AMB Questionnaire KRISTEL-7 Date KRISTEL - 7 assessed: 05/26/25 Source: Developed by Drs. Juan Antonio Woods, Radha Arpit Murray and colleagues, with an educational michelle from [employer]. Review of Systems Const Denies body aches, Denies chills, Denies fever(s), Denies headache(s) and Denies poor appetite Eyes Reports no additional complaints ENT Denies dizziness and Denies headache(s) Card Denies chest pain, Denies lightheadedness and Denies dyspnea Resp Denies dyspnea GI Denies nausea and Denies vomiting Reports no additional complaints Musc Reports no additional complaints and Denies abnormal gait Skin/Breast Reports as per HPI Neuro Denies abnormal gait, Denies dizziness and Denies headache(s) Psych Reports no additional complaints Physical exam (Primary Care) Vital Signs: Last Vital Signs Pulse 75 05/26/25 09:45 BP 146/56 H 05/26/25 09:45 Pulse Ox 98 05/26/25 09:45 Oxygen Delivery Method Room Air 05/26/25 09:45 BMI result Body Mass Index 18.0 Tobacco/Smoking Status: Tobacco use Status Tobacco use date assessed 05/26/25 05/26/25 09:50 Patient Tobacco Use Status Former Tobacco user 05/26/25 09:50 Tobacco use type Cigarette 05/26/25 09:50 e-Cigarette/Vaping Use Never Used 05/26/25 09:50 PHQ-9: PHQ-9 Score PHQ-9: Total score 1 05/26/25 10:28 Thrive Assessment: Date of Thrive Assessment Date Thrive assessed 05/26/25 05/26/25 09:50 Currently or been in a relationship where the following occur: No concerns reported Const General: cooperative, healthy appearing, comfortable and no acute distress Orientation/consciousness: patient oriented x3 [facility] Head: Yes normocephalic Ears: hearing grossly normal bilaterally General nose exam: Normal external nose present Eyes General: appearance normal, both eyes and all related structures Conjunctivae: conjunctivae normal Neck Neck: Yes full ROM and Yes no lymphadenopathy Chest Chest/axillae images: 2 1. Hard, immobile mass with irregular borders and skin dimpling without nipple retraction Resp Effort & Inspection: normal respiratory effort Auscultation: clear to auscultation bilaterally, no crackles, no rales, no rhonchi and no wheezes Cardio Rate: regular rate Rhythm: regular rhythm Skin General skin exam: no rashes or lesions noted Neuro General: patient oriented x3 Gait exam (Neuro): Normal gait present Extrem General: Yes normal to inspection, Yes full ROM and No edema Psych Affect: normal affect Attitude: cooperative Insight: Good insight present (Psych) Judgement: Good judgement present (Psych) Coding Level of Care Code Est Pt Level 4 (77655) Diagnoses Left breast mass N63.20 Additional Codes PHQ-9 - 34110 - PHQ-9 Billing: Yes ([id number]) Assessment & Plan Assessment & Plan (1) Left breast mass: Code(s): N63.20 - Unspecified lump in the left breast, unspecified quadrant Category: Medical Plan: Patient has concerning left breast mass plan to obtain stat mammogram and ultrasound for further evaluation. I advised the patient if she does not hear from the [facility] in the next 2 days to reach out to our office so we can coordinate a schedule. Plan to await imaging to guide next steps. Her last mammogram was 2022 through [facility]. Plan The patient will be referred for a diagnostic bilateral mammogram and ultrasound to evaluate the mass in the left breast. These tests are ordered stat due to the concerning nature of the findings and the duration of symptoms. The patient is advised to follow up with the [facility] for scheduling and to ensure timely completion of these imaging studies. The patient is informed about the potential seriousness of the breast findings, including the possibility of malignancy, and the importance of prompt diagnostic evaluation. She is encouraged to contact the clinic if she does not hear from the [facility] within the next day to expedite the process. This note was constructed using voice recognition software. While every effort has been made to ensure accuracy and tape editor, still areas may have been included sometimes these areas may affect the content or meeting of the given symptoms. Total time spent caring for the patient today was 20 minutes. This includes time spent before the visit reviewing the chart, time spent during the visit, and time spent after the visit and documentation. Patient was informed and verbally consented to the use of an ambient scribe for clinic note documentation during this visit. Orders: Orders 2 MM diagnostic mammo BI Today N63.20 - Unspecified lump in the left breast, unspecified quadrant US breast LT complete Today N63.20 - Unspecified lump in the left breast, unspecified quadrant Medications: Refilled 2 naloxone 4 mg/actuation (Narcan) spray 1 dose into ONE nostril; alternate nostrils w each dose until help arrives 4 mg intranasal Q3M PRN 2 ea 0RF opioid overdose M96.1 - Postlaminectomy syndrome, not elsewhere classified
[2025-05-26 09:45] VITALS: BP 146/56; PULSE 75; O2SAT 98; BMI 18.0
--- OUTSIDE RECORDS SUMMARY | 2025-05-26 10:44 | XMS_ITS | Clinical Summary ---
Author Organization [facility] Address [address] [place] [address] Care Team Providers Care Engraving Operator Name Role Phone Unavailable Primary Care Provider Unavailabl e Social History Tobacco Use Types Packs/Day Years Used Date Smoking Tobacco: Never Assessed Comments Unknown Sex and Gender Information Value Date Recorded Sex Assigned at Not on file Legal Sex Female 11:28 AM EDT Gender Identity Not on file Sexual Orientation Not on file Plan of Treatment Health Maintenance Due Date Last Done Comments Hepatitis C Virus Screening 1960 DTaP/Tdap/Td Vaccines (1 - Tdap) 1978 Pneumococcal Vaccines 50+ (1 of 1 - PCV) 2009 Zoster (Shingles) Vaccine (1 of 2) 2009 COVID-19 Vaccine ( - 2023-2 5 season) 2024 RSV Vaccine 60 years and old er and Patients (1 - 1-dose 75+ series) 2034 Hepatitis B Vaccines Aged Out No long er eligible based on patient's age to complete this topic
== END 2025-05-26 10:53 | disposition home or self-care (01) ==
LOC: HO.HMCH 09:39
PROVIDERS: PCP Internal Medicine
DX: N63.20 Unspecified lump in the left breast, unspecified quadrant (principal)

== ENCOUNTER → 2025-05-26 09:39 | Outpatient (BNVA) | payer MEDICARE, SELFPAY | PROVIDERS: PCP Internal Medicine | DX: M96.1 Postlaminectomy syndrome, not elsewhere classified (principal); N63.20 Unspecified lump in the left breast, unspecified quadrant | CPT/HCPCS: 96127; 99212 ==

== ENCOUNTER 2025-05-29 14:56 | Outpatient (REF) | payer MEDICARE, SELFPAY | END 2025-05-29 14:57 | disposition home or self-care (01) | LOC: CF 14:56 | DX: Z13.89 Encounter for screening for other disorder (principal) ==

== ENCOUNTER 2025-06-04 12:41 | Outpatient (REF) | payer MEDICARE, SELFPAY ==
--- NOTE | ~2025-06-04 | US_ITS ---
EXAMINATIONS: 1. MM DIAGNOSTIC DIGITAL BREAST TOMOSYNTHESIS, BILATERAL 2. Targeted ultrasound of the left breast CLINICAL INFORMATION: LEFT BR RETROAREOLAR MASS COMPARISON: Comparison made to incomplete set of images from outside hospital dated May 30, 2023, April 13, 2017 and March 02, 2015. TECHNIQUE: Digital breast tomosynthesis is performed in both the craniocaudal and mediolateral oblique views along with computer-aided detection (CAD). Synthesized 2D images are generated from the tomosynthesis. Skin BB marker is placed at the location of the palpable concern in the left breast. FINDINGS: BREAST COMPOSITION: The breasts are heterogeneously dense, which may obscure small masses (ACR BI-RADS breast composition Category c). RIGHT BREAST: No significant masses, suspicious calcifications or other abnormalities are seen. LEFT BREAST: Spiculated mass in the central breast/retroareolar region, subjacent to the skin BB marker, not completely included due to difficulty in optimal position and hardness of the mass. No suspicious calcifications are seen. Targeted ultrasound of the left breast was performed at the location of the palpable concern. The survey shows a 4.9 x 2.0 x 3.6 cm hypoechoic irregular solid mass at 12 o'clock position 1 cm from the nipple. Minimal internal vascularity demonstrated with color Doppler evaluation. US/US breast LT limited mamm only IMPRESSION: RIGHT BREAST: Negative, no mammographic evidence of malignancy. LEFT BREAST: Palpable 4.9 cm solid mass at 12 o'clock position at 1 cm from the nipple. Suspicious findings. Ultrasound-guided needle core biopsy is recommended. ASSESSMENT: BI-RADS 4 - Suspicious finding RECOMMENDATION: Biopsy recommended Results were discussed with the patient at time of visit. This patient's information was entered into a reminder system with a target due date for their next mammogram. Electronically signed by: Fabricio Schwartz MD 06/04/2025 01:41 PM EDT
--- OUTSIDE RECORDS SUMMARY | 2025-06-04 13:20 | XMS_ITS | Clinical Summary ---
Author Organization [facility] Address [address] [place] [address] Care Team Providers Care Academic Affairs Coordinator Name Role Phone Unavailable Primary Care Provider [...]
== END 2025-06-04 12:42 | disposition home or self-care (01) ==
LOC: HO.MAMMO 12:41
PROVIDERS: PCP Internal Medicine
DX: N63.21 Unspecified lump in the left breast, upper outer quadrant (principal); Z12.31 Encounter for screening mammogram for malignant neoplasm of breast
CPT/HCPCS: 76642; 77062; 77066

== ENCOUNTER → 2025-06-04 13:00 | Outpatient (BNV) | payer MEDICARE, SELFPAY | PROVIDERS: PCP Internal Medicine; Visit Provider Radiology Body Imaging | DX: N63.22 Unspecified lump in the left breast, upper inner quadrant (principal) | CPT/HCPCS: 76642; 77066; G0279 ==

== ENCOUNTER 2025-06-09 07:46 | Outpatient (REF) | payer MEDICARE, SELFPAY ==
--- NOTE | ~2025-06-09 | MM_ITS ---
EXAMINATION/PROCEDURE: 1. ULTRASOUND GUIDED CORE BIOPSY BREAST, LEFT 2. POST PROCEDURE DIGITAL MAMMOGRAM, LEFT CLINICAL INFORMATION: Patient is status post diagnostic mammogram/ultrasound workup on June 04, 2025 for left breast palpable mass. Ultrasound-guided core biopsy was recommended for the palpable left breast mass located at 12 o'clock position 12 cm from the nipple, which measured 4.9 x 2.0 x 3.6 cm. COMPARISON: Mammogram/ultrasound on June 04, 2025 FINDINGS: Proper informed consent is obtained from the patient after discussion of the procedure, potential risks and complications, and alternatives. Patient was given an opportunity for questions. The patient appeared to understand. The patient consented to the procedure and signed the consent form. GUIDANCE: Ultrasound-guided; aseptic technique. LESION: Left breast 12 o'clock position is 1 cm from the nipple. APPROACH: Lateral. ANESTHESIA: 15 cc of lidocaine 1% buffered with Sodium Bicarbonate 8.4 % (9cc: 1cc). NEEDLE: 14-gauge Bard Marquee biopsy device with co-axial introducer. CORES: 4. CLIP: Mammotome shape: open coil. POST PROCEDURE UNILATERAL DIGITAL MAMMOGRAM: The post biopsy mammogram is performed in separate room using separate digital mammography equipment from the biopsy procedure. ML 90 degrees, MLO and CC views are obtained. The patient tolerated the procedure well. No immediate complications. Home instructions reviewed with the patient. Final pathology results are pending. MM/MM diagnostic mammo unilat LT IMPRESSION: 1. Status post ultrasound-guided core biopsy left breast mass at 12 o'clock position at 1 cm from the nipple. 2. Clip placed: Mammotome shape: open coil. 3. Pathology pending. An addendum report will be issued. ASSESSMENT: Post procedure - Marker Placement RECOMMENDATION: Awaiting Pathology Results Electronically signed by: Fabricio Schwartz MD 06/09/2025 09:27 AM EDT
--- OUTSIDE RECORDS SUMMARY | 2025-06-09 07:48 | XMS_ITS | Clinical Summary ---
Author Organization [facility] Address [address] [place] [address] Care Team Providers Care Metal Window Frame Maker Name Role Phone Unavailable Primary Care Provider [...]
[2025-06-09] MEDS: Lidocaine HCl 1 % 20 ML VIAL 15 ML SUBCUT (09:14)
== END 2025-06-09 07:47 | disposition home or self-care (01) ==
LOC: HO.MAMMO 07:46
PROVIDERS: Pathology Anatomic Pathology & Clinical Pathology; Visit Provider Surgery
DX: N63.22 Unspecified lump in the left breast, upper inner quadrant (principal); Z12.31 Encounter for screening mammogram for malignant neoplasm of breast
CPT/HCPCS: 19083; 77062; 77065; 88305; 88341; 88342; 88360; 88374; A4648; J2003

== ENCOUNTER → 2025-06-09 08:00 | Outpatient (BNV) | payer MEDICARE, SELFPAY | PROVIDERS: Visit Provider Radiology Body Imaging | DX: N63.25 Unspecified lump in the left breast, overlapping quadrants (principal) | CPT/HCPCS: 19083; 77065 ==

== ENCOUNTER 2025-06-17 08:04 | Outpatient (AMB) | payer MEDICARE, SELFPAY ==
--- NOTE | 2025-06-17 08:07 | MHC.OFFVIS ---
Vital Signs 06/17/25 08:33 Height 5 ft 5 in Weight 111 lb BMI 18.5 BP 162/75 H Blood Pressure Location Rt brachial Position Sitting Pulse 66 Intake Visit Reasons: results US Biopsy 12 o'clock mass left breast Intake Note: Patient here s/p ultrasound-guided core biopsy left breast mass at 12 o'clock position at 1 cm from the nipple. Patient c/o: here to discuss results. Of note: Patient referred to Dr. Leta Das (breast surgical oncology). Consult appointment scheduled July 20 at 2pm. Senior Cyber Security Analyst Required: No Accompanied by: spouse Killian Allergies clonidine Allergy (Unknown, Verified 05/26/25 09:50) Unknown metronidazole (From Flagyl) Allergy (Unknown, Verified 05/26/25 09:50) Unknown oxazepam (From Serax) Allergy (Unknown, Verified 05/26/25 09:50) Unknown vancomycin Allergy (Unknown, Verified 05/26/25 09:50) Unknown HPI HPI results US Biopsy 12 o'clock mass left breast: Details: 65 year old female referred for a new diagnosis of invasive lobular cancer. She says that she has been feeling a mass on her left breast on and off since January 2025. She says that she eventually had a mammogram and an ultrasound biopsy done 3 weeks ago here. Unfortunately, this revealed the diagnosis of invasive lobular cancer, ERPR positive, HER2 pending. She says that she had a mammogram in [facility] last year. She says she was told this was unremarkable. However, her mammogram from last month showed a large tumor, 4.9 cm on the left breast. Her menarche was at age of 10. She was only once at age of 36 and this was a miscarriage. She said she had menopause about about 47. She denies any strong family history of breast cancer. She has a known smoker. [facility] Medical History Invasive lobular carcinoma of breast in female Dermatitis Osteopenia Pernicious anemia Impaired fasting glucose Acquired hypothyroidism Pure hypercholesterolemia Renal insufficiency GERD without esophagitis Failed back syndrome of lumbar spine Chronic fatigue syndrome Lumbar degenerative disc disease Surgical History Hx of colonoscopy (~08/21/17) History of endoscopy History of surgery Family History Father Chronic GERD Mother Hypertension Hypothyroid Social History Housing: House Alcohol intake: current Alcohol intake frequency: holidays/special occasions only Patient Tobacco Use Status: Former Tobacco user Tobacco use type: Cigarette e-Cigarette/Vaping Use: Never Used Second Hand Smoke Exposure: No service: No Current occupational status: disabled Cognitive needs: No Hearing needs: No Vision needs: No Review of Systems Const Denies chills and Denies fever(s) Card Denies chest pain, Denies dyspnea and Denies dyspnea on exertion Resp Denies cough, Denies dyspnea and Denies dyspnea on exertion GI Denies hematochezia and Denies change in bowel habits Denies hematuria Musc Denies back pain and Denies limited range of motion Neuro Denies focal weakness and Denies convulsions Psych Denies depression and Denies mood swings Physical Exam Vital Signs: Last Vital Signs Pulse 66 06/17/25 08:33 BP 162/75 H 06/17/25 08:33 BMI result Body Mass Index 18.5 Const General: comfortable and no acute distress Orientation/consciousness: patient oriented x3 Neck Neck: Yes no lymphadenopathy Chest Other: The entire left breast is indurated with a firm mass, with skin dimpling consistent with diagnosis Resp Auscultation: clear to auscultation bilaterally Cardio Rhythm: regular rhythm GI Palpation (GI): Soft to palpation, nontender and no guarding Neuro General: patient oriented x3 Assessment & Plan Assessment & Plan (1) Invasive lobular carcinoma of breast in female: Code(s): C50.919 - Malignant neoplasm of unspecified site of unspecified female breast Category: Medical Plan: She has a new diagnosis of invasive lobular carcinoma of the left breast as described above. He is ERPR positive, HER2 pending. She has a large tumor, up to 4.9 cm on mammogram. On physical exam, the entire breast appears very indurated with note of dimpling of the skin consistent with locally advanced cancer. I explained to her that she will likely benefit from neoadjuvant chemotherapy. She will need reimaging down the line. I have sent her a referral to our oncologist here she says that she already is making arrangements to be seen in [facility] where she says she usually has her mammograms I told her that if they need assistance down the line with these referrals, she is welcome to call me or see me in the office again in the future. Her was with her during the visit Coding Level of Care Code New Pt Level 4 (17241) Diagnoses Invasive lobular carcinoma of breast in female C50.919
[2025-06-17 08:33] VITALS: BP 162/75; PULSE 66; BMI 18.5
--- OUTSIDE RECORDS SUMMARY | 2025-06-17 08:56 | XMS_ITS | Clinical Summary ---
Author Organization [facility] Address [address] [place] [address] Care Team Providers Care Cartographic Designer Name Role Phone Unavailable Primary Care Provider Unavailabl e Social History Tobacco Use Types Packs/Day Years Used Date Smoking Tobacco: Never Assessed Comments Unknown Sex and Gender Information Value Date Recorded Sex Assigned at Not on file Legal Sex Female 11:28 AM EDT Gender Identity Not on file Sexual Orientation Not on file Plan of Treatment Health Maintenance Due Date Last Done Comments Advance Care Planning 1960 Hepatitis C Virus Screening 1960 DTaP/Tdap/Td Vaccines (1 - Tdap) 1978 Pneumococcal Vaccines 50+ (1 of 1 - PCV) 2009 Zoster (Shingles) Vaccine (1 of 2) 2009 COVID-19 Vaccine ( - 2023-2 5 season) 2025 RSV Vaccine 60 years and old er and Patients (1 - 1-dose 75+ series) 2034 Hepatitis B Vaccines Aged Out No long er eligible based on patient's age to complete this topic
== END 2025-06-17 09:08 | disposition home or self-care (01) ==
LOC: HO.HGS 08:05
PROVIDERS: PCP Internal Medicine; Visit Provider Surgery
DX: C50.919 Malignant neoplasm of unspecified site of unspecified female breast (principal)
CPT/HCPCS: 99204

== ENCOUNTER → 2025-06-17 08:04 | Outpatient (BNVA) | payer MEDICARE, SELFPAY | PROVIDERS: PCP Internal Medicine; Visit Provider Surgery | DX: C50.912 Malignant neoplasm of unspecified site of left female breast (principal) | CPT/HCPCS: 99202 ==

== ENCOUNTER 2025-06-23 16:53 | Outpatient (AMB) | payer MEDICARE, SELFPAY ==
[2025-06-23 16:56] VITALS: BP 100/60; PULSE 74; O2SAT 96; BMI 18.0
--- NOTE | 2025-06-23 16:56 | MHC.PC.OV ---
Vital Signs 06/23/25 16:56 Height 5 ft 5 in Weight 108 lb 6 oz BMI 18.0 BP 100/60 Blood Pressure Location Lt brachial Position Sitting Pulse 74 Pulse Source Pulse Oximeter Pulse Oximetry (%) 96 Oxygen Delivery Method Room Air Intake Visit Reasons: Annual PE, resched Coal Sample Tester Required: No Accompanied by: Self / Same As Patient Allergies clonidine Allergy (Unknown, Verified 06/24/25 03:20) Unknown metronidazole (From Flagyl) Allergy (Unknown, Verified 06/24/25 03:20) Unknown oxazepam (From Serax) Allergy (Unknown, Verified 06/24/25 03:20) Unknown vancomycin Allergy (Unknown, Verified 06/24/25 03:20) Unknown Medication List - Last Reconciled 06/24/25 by Primo Sanchez MD atovaquone 750 mg PO BID [BD Luer -Rod syringes. 3cc 25 G x5/8 in As directed] [BD SYRINGES 31 g As directed] clobetasol 0.05% 1 appl topical BID PRN cyanocobalamin (vitamin B-12) 1,000 mcg IM QWEEK diazepam (Valium) 2 mg PO DAILY PRN 30 days esomeprazole magnesium 40 mg PO DAILY estradiol-norethindrone acet 1-0.5 mg (Activella) 1 tab PO DAILY fentanyl 50 mcg/hr 1 patch topical Q48H 30 days NS ferrous sulfate (Feosol) 325 mg PO DAILY hydrocodone-acetaminophen 10-325 mg 1 tab PO Q6H PRN 28 days insulin syringe-needle U-100 ([facility] Syringes) As directed levothyroxine 88 mcg PO DAILY 90 days lidocaine 5% 1 patch topical DAILY 30 days liothyronine 5 mcg PO DAILY 90 days methocarbamol 750 mg PO TID PRN methylphenidate HCl 5 mg PO BID 28 days naloxone 4 mg/actuation (Narcan) 4 mg intranasal Q3M PRN oxycodone-acetaminophen 10-325 mg 1 tab PO Q6H 28 days Held on 10/26/23. Instructions: Doctor's Order prochlorperazine maleate 10 mg PO TID PRN valacyclovir 500 mg PO BID Tobacco use date assessed: 06/23/25 Fall risk assessment: No Falls in past year Last assessed Fall Risk: 06/23/25 Dental Screening Dental Screen Date: 06/23/25 Did you have a dental visit in the last 12 months?: No Did you have a dental problem in the last 6 months where you did not have access to dental care?: No Was dental information given to patient?: No HPI Annual PE, resched HPI Details Patient comes in today for her annual physical examination She was recently diagnosed with invasive lobular carcinoma of the left breast and currently has an upcoming appointment to see Oncology at [facility] sometime next week Her pathology report came back as invasive lobular carcinoma, MSBR grade 2 She was estrogen receptor positive, progesterone receptor positive and HER2 was 2+ She was then sent for FISH analysis, which came back negative Patient states that she feels okay otherwise She denies any headaches or dizziness Denies any chest pains, no shortness of breath No nausea/vomiting, no abdominal pain No change in bowel habits noted She denies any acute urinary symptoms She has not had any follow up labs done recently She will be due for repeat colonoscopy in 2026 She has not had her yearly gynecology exam and pap smear done in a couple of years - used to go to her screen printing loader unloader at [facility] but he has since retired [facility] Medical History (Updated 06/24/25 @ 05:03 by Primo Sanchez MD) Invasive lobular carcinoma of breast in female Dermatitis Osteopenia Pernicious anemia Impaired fasting glucose Acquired hypothyroidism Pure hypercholesterolemia Renal insufficiency GERD without esophagitis Failed back syndrome of lumbar spine Chronic fatigue syndrome Lumbar degenerative disc disease Surgical History Hx of colonoscopy (~08/21/17) History of endoscopy History of surgery Family History Father Chronic GERD Mother Hypertension Hypothyroid Social History Housing: House Alcohol intake: current Alcohol intake frequency: holidays/special occasions only Patient Tobacco Use Status: Former Tobacco user Tobacco use type: Cigarette e-Cigarette/Vaping Use: Never Used Second Hand Smoke Exposure: No service: No Current occupational status: disabled Cognitive needs: No Hearing needs: No Vision needs: No Questionnaire Thrive Questionnaire Date Thrive assessed: 03/30/25 I am a: Patient What is your living situation today?: I have a steady place to live Within the past 12 months, did the food you bought not last and you didn't have the money to get more?: Never true Within the past 12 months, did you worry whether your food would run out before you got money to buy more?: Never true Do you have trouble paying for medicines?: No Do you have trouble getting transportation to medical appointments?: No Do you have trouble paying your heating and electricity bill?: No Do you have trouble taking care of your child, family member or friend?: No Do you have trouble with day-to-day activities such as bathing, preparing meals, shopping, managing finances, etc.?: No Are you currently unemployed and looking for a job?: No Are you interested in more education?: No Please select the resources that you would like help with: None Currently or been in a relationship where the following occur: No concerns reported THRIVE Score: 0 AUDIT C Alcohol Use Questionnaire (AUDIT-C) 1. How often do you have a drink containing alcohol?: Monthly or less 2. How many drinks containing alcohol do you have on a typical day when you are drinking?: 1 or 2 3. How often do you have six or more drinks on one occasion?: Never Total Score: 1 Score Reviewed/Action Taken: Yes KRISTEL-7 AMB Questionnaire KRISTEL-7 Date KRISTEL - 7 assessed: 05/26/25 Source: Developed by Drs. Juan Antonio Woods, Radha Tenorio, Arpit Mccauley and colleagues, with an educational michelle from [employer]. Review of Systems Const Denies chills, Reports fatigue (chronic), Denies fever(s), Denies headache(s) and Denies malaise Eyes Denies blurry vision, Denies change in vision, Denies irritation and Denies itchy eyes ENT Denies dysphagia, Denies dizziness, Denies otalgia, Denies headache(s), Denies nasal congestion, Denies neck pain, Denies odynophagia, Denies sinus pain and Denies sore throat Card Denies chest pain, Denies rapid heart rate, Denies irregular heart rhythm, Denies palpitations and Denies dyspnea Resp Denies chest congestion, Denies cough, Denies dyspnea and Denies wheezing GI Denies abdominal pain, Denies bloating, Denies constipation, Denies dysphagia, Denies heartburn, Denies diarrhea, Denies nausea, Denies odynophagia and Denies vomiting Denies hematuria, Denies difficulty voiding, Denies dysuria, Denies urinary incontinence and Denies urinary urgency Musc Reports back pain (over the lower back - chronic), Reports myalgias (diffuse - chronic) and Denies neck pain Skin/Breast Denies breast pain, Denies breast mass, Denies change in pigmentation, Denies lesions, Denies rash and Denies unusual bruising Neuro Denies dizziness, Denies headache(s) and Denies paresthesias Psych Denies anxiety and Denies depression Endo Reports fatigue (chronic) and Denies palpitations Reid/Lymph Denies easy bruising Aller/Immun Denies itchy eyes and Denies wheezing Physical exam (Primary Care) Vital Signs: Last Vital Signs Pulse 74 06/23/25 16:56 BP 100/60 06/23/25 16:56 Pulse Ox 96 06/23/25 16:56 Oxygen Delivery Method Room Air 06/23/25 16:56 BMI result Body Mass Index 18.0 Tobacco/Smoking Status: Tobacco use Status Tobacco use date assessed 06/23/25 06/23/25 17:01 Patient Tobacco Use Status Former Tobacco user 06/23/25 17:01 Tobacco use type Cigarette 06/23/25 17:01 e-Cigarette/Vaping Use Never Used 06/23/25 17:01 Thrive Assessment: Date of Thrive Assessment Date Thrive assessed 03/30/25 06/23/25 17:01 Currently or been in a relationship where the following occur: No concerns reported Const General: no acute distress, alert and awake Orientation/consciousness: patient oriented x3 HENMT Head: Yes normocephalic and Yes atraumatic Ears: external ears normal, TM's normal bilaterally and EAC's normal General nose exam: No nasal discharge present Face and sinus: Yes normal facial exam and Yes sinuses nontender Teeth and gingiva: dentition normal Throat: Yes posterior oropharynx normal and Yes tonsils normal (no TP congestion) Eyes Eyelids: Yes eyelids normal Conjunctivae: conjunctivae normal Pupils: Equal, round and reactive pupils present EOM: EOMs intact bilaterally Neck Neck: Yes supple and No lymphadenopathy Thyroid: Thyroid normal Resp Auscultation: clear to auscultation bilaterally, no rales and no wheezes Cardio Rate: regular rate Rhythm: regular rhythm Heart sounds: no murmurs GI Palpation (GI): Soft to palpation, nontender and No hepatosplenomegaly present Auscultation: normal bowel sounds General: Yes no CVA tenderness Back/Spine/Pelvis Back: no CVA tenderness Thoracic/Lumbar Spine: lumbar spinal tenderness Skin Lesions: no lesions Rashes: no rashes Neuro General: patient oriented x3, moves all extremities, no focal motor deficits and CN's II-XI intact bilaterally Cranial nerves: Yes Equal, round and reactive pupils present Cognition (Neuro): normal cognition Gait exam (Neuro): Normal gait present Extrem General: Yes no clubbing, cyanosis or edema Coding Level of Care Code Est Pt Prev Care >65y(12178) Diagnoses Annual physical exam Z00.00 Invasive lobular carcinoma of breast in female C50.919 Failed back syndrome of lumbar spine M96.1 Chronic fatigue syndrome R53.82 Acquired hypothyroidism E03.9 Pure hypercholesterolemia E78.00 Impaired fasting glucose R73.01 Renal insufficiency N28.9 GERD without esophagitis K21.9 Pernicious anemia D51.0 Osteopenia, unspecified location M85.80 Osteopenia location: unspecified Dermatitis L30.9 Cervical cancer screening Z12.4 Assessment & Plan Assessment & Plan (1) Annual physical exam: Code(s): Z00.00 - Encounter for general adult medical examination without abnormal findings Category: Medical Plan: Check labs to MANNY complete her annual exam today She is up-to-date with her colon cancer screening and will be due for repeat colonoscopy in 2026 Her annual mammogram is UTD - was just diagnosed with left breast cancer She has not had her yearly gynecology exam and pap smear done in a couple of years now and her previous screen printing loader unloader at [facility] has since retired She is also due for her repeat BMD for osteoporosis screening (2) Invasive lobular carcinoma of breast in female: Comment: left breast - ER positive, [place] positive, HER2 FISH negative Code(s): C50.919 - Malignant neoplasm of unspecified site of unspecified female breast Category: Medical Plan: She is now scheduled to see oncology at [facility] next week for her initial visit and is hoping to be able to start her cancer Tx soon (3) Failed back syndrome of lumbar spine: Code(s): M96.1 - Postlaminectomy syndrome, not elsewhere classified Category: Medical Plan: S/P lumbar spine surgery x 2 in the past without any significant improvement/relief Reinforced activity and weight-lifting restrictions Continue Vicodin 10-325 mg q 6 hours PRN ? Fentanyl 50 mcg patch every 48 hrs ? Duloxetine 30 mg BID and ? Ibuprofen 800 mg TID PRN (4) Chronic fatigue syndrome: Code(s): R53.82 - Chronic fatigue, unspecified Category: Medical Plan: Continue Methylphenidate 5 mg BID Patient [facility] [place] [facility] years but states that they are now charging her over $350 a year for them to continue seeing her (it appears that they are switching over to a breakdown man medicine model) and she is not able to afford to continue with them She was previously started on some Thymosin peptide injections (Thymosin Alpha 1/2 cc BIW), which she states were causing her more pain and they were eventually discontinued She has also been advised of other recommendations, including Methylene blue but patient did not pursue this Patient recalls being tested for Lyme disease multiple times in the past and her tests always came out negative but she was eventually still diagnosed with Lyme disease after additional testing done by [facility] came out positive and she was then subsequently treated (5) Acquired hypothyroidism: Code(s): E03.9 - Hypothyroidism, unspecified Category: Medical Plan: Continue Levothyroxine 88 mcg daily Will recheck her TFTs MANNY for follow up (6) Pure hypercholesterolemia: Code(s): E78.00 - Pure hypercholesterolemia, unspecified Category: Medical Plan: Reinforced low-cholesterol diet Will have patient go and get her labs and fasting lipids rechecked MANNY for follow up (7) Impaired fasting glucose: Code(s): R73.01 - Impaired fasting glucose Category: Medical Plan: Reinforced low calorie/low carb diet; exercise as tolerated Will have her check her FBS and HgbA1c MANNY for follow up (8) Renal insufficiency: Code(s): N28.9 - Disorder of kidney and ureter, unspecified Category: Medical Plan: Her previous labs showed findings consistent with stage 2 CKD Will continue monitoring her GFR and serum creatinine regularly and will consider referral to Nephrology for further evaluation and management if her renal function declines any further (9) GERD without esophagitis: Code(s): K21.9 - Gastro-esophageal reflux disease without esophagitis Category: Medical Plan: Dietary restrictions reinforced Continue Esomeprazole 40 mg QD (10) Pernicious anemia: Code(s): D51.0 - Vitamin B12 deficiency anemia due to intrinsic factor deficiency Category: Medical Plan: Continue Vitamin B12 injection once a week Will recheck her Vitamin B12 level and CBC MANNY for follow-up (11) Osteopenia: Code(s): M85.80 - Other specified disorders of bone density and structure, unspecified site Category: Medical Qualifiers: Osteopenia location: unspecified Qualified Code(s): M85.80 - Other specified disorders of bone density and structure, unspecified site Plan: Her repeat BMD originally scheduled back in November 2019 was canceled due to the COVID-19 pandemic and patient has not been able to get her BMD rescheduled since despite it being ordered multiple times over the past few years Patient then asked to have this put on hold until she is completely switched over to Medicare - as she now has Medicare coverage, will go ahead and reorder her repeat BMD (12) Dermatitis: Code(s): L30.9 - Dermatitis, unspecified Category: Medical Plan: Continue Clobetasol 0.05% BID PRN (13) Cervical cancer screening: Code(s): Z12.4 - Encounter for screening for malignant neoplasm of cervix Category: Medical Plan: Patient used to go to [facility] for her gynecology exam and Pap smear but her screen printing loader unloader has retired recently Will go ahead and refer her to the [facility] women[facility] center to get her yearly gynecology exam and Pap smear updated Plan Follow up in 6 months Orders: Orders Complete Blood Count Auto Diff 06/23/25 D64.9 - Anemia, unspecified, Z00.00 - Encounter for general adult medical examination without abnormal findings Comprehensive Phelps. Panel Fast 06/23/25 E78.00 - Pure hypercholesterolemia, unspecified, Z00.00 - Encounter for general adult medical examination without abnormal findings Lipid Panel 06/23/25 E78.00 - Pure hypercholesterolemia, unspecified, Z00.00 - Encounter for general adult medical examination without abnormal findings Vitamin D 25-OH Total 06/23/25 E55.9 - Vitamin D deficiency, unspecified, Z00.00 - Encounter for general adult medical examination without abnormal findings XR DEXA axial skeleton 06/23/25 Z78.0 - Asymptomatic menopausal state UA CC w/rflx Micro + Cult 06/23/25 R30.0 - Dysuria, Z00.00 - Encounter for general adult medical examination without abnormal findings Vitamin B12 and Folate 06/23/25 E53.8 - Deficiency of other specified B group vitamins, Z00.00 - Encounter for general adult medical examination without abnormal findings Thyroid Stimulating Hormone 06/23/25 E03.9 - Hypothyroidism, unspecified Free T4 (Free Thyroxine) 06/23/25 E03.9 - Hypothyroidism, unspecified Referrals COMPOUND FILLER Referral Z12.4 - Encounter for screening for malignant neoplasm of cervix
--- OUTSIDE RECORDS SUMMARY | 2025-06-23 19:11 | XMS_ITS | Clinical Summary ---
Author Organization [facility] Address [address] [place] [address] Care Team Providers Care It Support Manager Name Role Phone Unavailable Primary Care Provider [...]
== END 2025-06-23 17:38 | disposition home or self-care (01) ==
LOC: HO.HMCH 16:53
PROVIDERS: PCP Internal Medicine; Visit Provider Internal Medicine
DX: Z00.00 Encounter for general adult medical examination without abnormal findings (principal); C50.919 Malignant neoplasm of unspecified site of unspecified female breast; M96.1 Postlaminectomy syndrome, not elsewhere classified; R53.82 Chronic fatigue, unspecified; E03.9 Hypothyroidism, unspecified; E78.00 Pure hypercholesterolemia, unspecified; R73.01 Impaired fasting glucose; N28.9 Disorder of kidney and ureter, unspecified; K21.9 Gastro-esophageal reflux disease without esophagitis; D51.0 Vitamin B12 deficiency anemia due to intrinsic factor deficiency; M85.80 Other specified disorders of bone density and structure, unspecified site; L30.9 Dermatitis, unspecified

== ENCOUNTER → 2025-06-23 16:53 | Outpatient (BNVA) | payer MEDICARE, SELFPAY | PROVIDERS: PCP Internal Medicine; Visit Provider Internal Medicine | DX: Z00.00 Encounter for general adult medical examination without abnormal findings (principal); M96.1 Postlaminectomy syndrome, not elsewhere classified; C50.912 Malignant neoplasm of unspecified site of left female breast; R53.82 Chronic fatigue, unspecified; E03.9 Hypothyroidism, unspecified; E78.00 Pure hypercholesterolemia, unspecified; R73.01 Impaired fasting glucose; N28.9 Disorder of kidney and ureter, unspecified; Z17.0 Estrogen receptor positive status [ER+] | CPT/HCPCS: 99397 ==